=== PATIENT | female | born 1980 | race Hispanic/Latino ===

== ENCOUNTER 2021-03-14 18:52 | Emergency (ER) | payer SELFPAY ==
[2021-03-14 19:23] VITALS: BP 112/85
--- NOTE | 2021-03-14 19:45 | Emergency Department Report ---
ED General Adult HPI - General Chief complaint: Medical Clearance Stated complaint: MISSED MEDS/WITHDRAWALS Time Seen by Provider: 03/14/21 19:28 Source: patient Mode of arrival: Ambulatory Limitations: No Limitations - History of Present Illness Initial comments: 40-year-old female patient presents with complaints of opioid withdrawal. She reports she has been taking Suboxone for the past couple of months. Patient states she is from [place] and follows with a Suboxone clinic. Patient states her transfer down while she was here in [place] and has been staying in the [facility] for the past few days and is out of her prescription. She reports she began to have some body aches and nausea and vomiting today. She denies any abdominal pain or fever. No chest pain or shortness of breath per patient - Related Data Previous Rx's Medication Instructions Recorded Last Taken Type Ondansetron [Zofran Odt] 4 mg PO Q8HR PRN #15 tab.rapdis 03/14/21 Unknown Rx Allergies Allergy/AdvReac Type Severity Reaction Status Date / Time No Known Allergies Allergy Unverified 03/14/21 19:29 ED Review of Systems ROS: Stated complaint: MISSED MEDS/WITHDRAWALS Other details as noted in HPI Constitutional: denies: fever Respiratory: no symptoms reported Cardiovascular: as per HPI Gastrointestinal: as per HPI Neurological: denies: headache ED Past Medical Hx - Past Medical History Previous Medical History?: Yes Additional medical history: Opiatiate Abuser - Surgical History Past Surgical History?: Yes Additional Surgical History: . Tonsillectomy. Adenoidectomy - Social History Smoking Status: Current Every Day Smoker Substance Use Type: None - Medications Home Medications: Home Medications Medication Instructions Recorded Confirmed Last Taken Type Ondansetron [Zofran Odt] 4 mg PO Q8HR PRN #15 tab.rapdis 03/14/21 Unknown Rx ED Physical Exam - General Limitations: No Limitations General appearance: alert, in no apparent distress - Head Head exam: Present: atraumatic, normocephalic - Eye Eye exam: Present: normal appearance - Respiratory Respiratory exam: Absent: respiratory distress - Cardiovascular Cardiovascular Exam: Present: regular rate - GI/Abdominal GI/Abdominal exam: Present: soft. Absent: tenderness - Neurological Exam Neurological exam: Present: alert, oriented X3 - Psychiatric Psychiatric exam: Present: normal affect, normal mood - Skin Skin exam: Present: warm, dry, intact, normal color. Absent: rash ED Course Vital Signs 03/14/21 19:16 Temperature 99.0 F Pulse Rate 103 H Respiratory 18 Rate Blood Pressure 112/85 O2 Sat by Pulse 100 Oximetry ED Medical Decision Making - Medical Decision Making 40-year-old female patient presents with complaints of opioid withdrawal. She reports she has been taking Suboxone for the past couple of months. Patient states she is from [place] and follows with a Suboxone clinic. Patient states her transfer down while she was here in [place] and has been staying in the motel for the past few days and is out of her prescription. She reports she began to have some body aches and nausea and vomiting today. She denies any abdominal pain or fever. No chest pain or shortness of breath per patient Verified patient's Suboxone prescription and [facility]. I do not suspect drug- seeking. Patient given 1 dose of Suboxone and Zofran for home and informed she will need to follow-up with her Suboxone clinic or another here in [place] for further Suboxone treatment. She is otherwise well-appearing, her vitals are within normal limits, she is stable for discharge home. Discussed in detail signs and symptoms that should prompt immediate return to the ED with patient who verbalizes understanding Critical care attestation.: If time is entered above; I have spent that time in minutes in the direct care of this critically ill patient, excluding procedure time. ED Disposition Clinical Impression: Opioid withdrawal Disposition: HOME / SELF CARE / HOMELESS Is pt being admited?: No Condition: Stable Instructions: Opioid Withdrawal Prescriptions: Ondansetron [Zofran Odt] 4 mg PO Q8HR PRN #15 tab.rapdis PRN Reason: Nausea
[2021-03-14] MEDS ORDERED: METHADONE 10 MG TAB PO ONE (19:50)
[2021-03-14] MEDS ORDERED: BUPRENORPHINE 2 MG/NALOXONE 0.5 MG FILM SL ONE (20:39)
== END 2021-03-14 21:00 | disposition home or self-care (01) ==
LOC: ED 18:52
DX: F11.23 Opioid dependence with withdrawal (principal); F17.200 Nicotine dependence, unspecified, uncomplicated
CPT/HCPCS: 99282